=== PATIENT | male | born 1935 | race African-American/Black ===

== ENCOUNTER 2020-05-05 03:56 | Inpatient (IN) | payer MEDICARE ==
[~2020-05-05] VITALS: Ht 167.6 cm; Wt 66.7 kg
[2020-05-05] MEDS ORDERED: CALCIUM GLUC 4.65meq/50ml D5AE 50 ML IV ONE (04:30)
[2020-05-05] MEDS ORDERED: cloNIDine HCL 0.1 MG TAB PO ONE (04:30)
[2020-05-05 04:44] LABS: Basophils # (auto) 0 10 ^3/uL (0-0.2); Basophils % (auto) 0.2 % (0.0-2.0); Eosinophils # (auto) 0 10 ^3/uL (0-0.8); Eosinophils % (auto) 0.3 % (0.0-7.0); Hematocrit 44.3 % (41.0-53.0); Hemoglobin 15.2 g/dL (13.5-17.5); Lymphocytes # (auto) 2.4 10 ^3/uL (0.4-5.4); Lymphocytes % (auto) 23.4 % (10.0-50.0); Mean Corpuscular Hgb Conc. 34.4 g/dL (32.0-36.0); Mean Corpuscular Volume 90.1 fL (80.0-100.0); Monocytes # (auto) 1.3 10 ^3/uL (0-1.3); Monocytes % (auto) 12.5 % (0.0-12.0); Neutrophils # (auto) 6.4 10 ^3/uL (1.6-8.6); Neutrophils % (auto) 63.6 % (37.0-80.0); Nucleated Red Blood Cells % 0.2 %; Platelet Count (auto) 186 10^3/uL (140-450); Red Blood Cells 4.92 10^6/uL (4.5-5.90); Red Cell Distribution Width 14.3 % (11.8-14.3); White Blood Cell 10.1 10^3/uL (4.4-10.8)
[2020-05-05] MEDS ORDERED: ASPirin 81 mg TAB PO ONE (04:45)
[2020-05-05 05:00] LABS: Albumin 4.3 g/dL (3.4-5.0); Calcium 8.8 mg/dL (8.5-10.1); Magnesium 2.6 mg/dL (1.6-2.6); Potassium 3.3 mmol/L (3.5-5.1)
[2020-05-05] MEDS ORDERED: METOPROLOL TARTRATE 25 MG TAB PO ONE (05:00)
[2020-05-05 05:08] LABS: Bilirubin, Total 0.6 mg/dL (0.2-1.0); Total Protein 8.8 g/dL (6.4-8.2)
[2020-05-05] MEDS ORDERED: NITROGLYCERIN 2% OINT 1GM PKG TD ONE ×2 (05:30→05:45)
[2020-05-05 05:44] LABS: INR 1.02 (0.9-1.15); Partial Thromboplastin Time 27.1 sec (23.0-31.2)
[2020-05-05] MEDS ORDERED: POTASSIUM EFFERVESENT TAB 25 MEQ PO ONE (06:45)
[2020-05-05] MEDS ORDERED: HEPARIN SODIUM (PORCINE) 5000 UNITS/ML 1ML VIAL IV ONE (06:45)
[2020-05-05] MEDS ORDERED: IOHEXOL 350 MG/ML 100ML IJ ONE ×2 (07:57→08:19)
[2020-05-05] MEDS ORDERED: NITROGLYCERIN 0.4 MG SL TAB SL PRN ×2 (09:30→10:45)
[2020-05-05] MEDS ORDERED: MORPHINE SULF INJ 2 MG/ML SYRINGE 1ML IV PRN (09:30)
[2020-05-05] MEDS ORDERED: SODIUM CHLORIDE 0.9% 500 ML IV ONE (09:30)
[2020-05-05] MEDS ORDERED: ATENOLOL 25 MG TAB PO ONE (10:45)
[2020-05-05] MEDS ORDERED: POTASSIUM CHL 20MEQ/100ML 100 ML IV ONE (10:45)
[2020-05-05] MEDS ORDERED: dilTIAZem 120MG ER CAP PO ONE (10:45)
[2020-05-05] MEDS ORDERED: ACETAMINOPHEN 325 MG TAB PO PRN (10:45)
[2020-05-05] MEDS ORDERED: ONDANSETRON HCL 4 MG/2 ML VIAL IV PRN (10:45)
[2020-05-05] MEDS ORDERED: LORazepam 0.5 MG TAB PO PRN (10:45)
[2020-05-05] MEDS ORDERED: MORPHINE SULFATE 4 MG/ML SYR/VIAL IV PRN (10:45)
[2020-05-05] MEDS ORDERED: ALUM & MAG HYDROX-SIMETH LIQ(MAALOX) 30 ML PO ONE (10:45)
[2020-05-05] MEDS ORDERED: CYAN500T15 PO (11:12)
[2020-05-05] MEDS ORDERED: CHOL400C7 PO (11:12)
[2020-05-05] MEDS ORDERED: ROSU20TA14 PO (11:12)
[2020-05-05] MEDS ORDERED: DENO60SO SC (11:12)
[2020-05-05] MEDS ORDERED: LEVO75TA6 PO (11:12)
[2020-05-05] MEDS ORDERED: DILT-23 PO (11:13)
[2020-05-05] MEDS ORDERED: LOSARTAN POTASSIUM 25 MG TAB PO ONE (11:15)
--- NOTE | 2020-05-05 12:15 | NUR ---
Telemetry admit from ER RADHA REYES admitted to Telemetry unit after verbal report received from LORENZO Christopher, ER. Patient oriented to Anna Ny, primary RN, unit, room, bed, and unit policies regarding patient care and visiting hours. Patient now on continuous telemetry monitoring, tele box # 69 and telemetry reading on arrival to unit is sinus rhythm @ 86 bpm. IV to right antecubital, 20 gauge, patent and infusing 0.9% NS @ 75 ml/hr. Patient placed on bedside oxygen, weighed by bedscale and encouraged to call if they need something. All questions and concerns addressed, patient verbalized understanding. Note:
[2020-05-05] MEDS: SODIUM CHLORIDE 0.9% 1,000 ML IV SCH ×2 (12:34→22:16)
[2020-05-05 13:00] VITALS: BP 137/85
[2020-05-05 14:36] LABS: Free T4 (Free Thyroxine) 2.17 ng/dL (0.89-1.76)
[2020-05-05 17:00] VITALS: BP 132/82
--- NOTE | 2020-05-05 19:24 | NUR ---
Care endorsed to LORENZO Hwang, night nurse.
--- NOTE | 2020-05-05 19:35 | NUR ---
Opening Shift Note Assumed care of patient, awake and alert. No S/S of distress/SOB or pain noted. Instructed on POC and to call for assist PRN. Bed is in lowest locked position with bed rails up x2 and call light is within reach of the patient.
--- NOTE | 2020-05-05 19:38 | NUR ---
CALLED AND SPOKE WITH HOSPITALIST: Spoke with hospitalist Karly regarding patients complaints of indigestion who is requesting medication. Updated about patient, new orders received, to place orders.
[2020-05-05] MEDS ORDERED: FAMOTIDINE 20 MG TAB PO ONE (19:45)
[2020-05-05 22:00] VITALS: BP 150/98
[2020-05-05] MEDS ORDERED: ATENOLOL 25 MG TAB PO SCH (22:00)
[2020-05-05] MEDS: MAGNESIUM OXIDE 400 MG TAB PO SCH (22:14)
[2020-05-05] MEDS: ATORVASTATIN 20 MG TAB PO SCH (22:14)
[2020-05-05] MEDS: METOPROLOL SUCCINATE XL 50 MG TAB PO SCH (22:15)
[2020-05-06 05:00] VITALS: BP 147/86
--- NOTE | 2020-05-06 05:07 | NUR ---
Cloth Printer called: compliance technician called and notified this RN that patients heart rhythm reverted from a fib back to sinus rhythm at this time.
--- NOTE | 2020-05-06 08:00 | NUR ---
Opening Shift Note Assumed care of patient, awake, alert and oriented X4. No S/S of distress/SOB or pain. Tele# 69, sinus rhythm @ 86 bpm but patient has been converting between sinus rhythm and atrial fibrillation, Dr Sanabria aware. IV to left forearm, 22 gauge, patent and infusing 0.9% NS @ 75 ml/hr. Instructed on POC and to call for assist PRN, verbalized understanding. Bed locked, in lowest position, call light within reach, will continue to monitor for changes Q1hr and PRN.
[2020-05-06 09:00] VITALS: BP 150/93
[2020-05-06] MEDS ORDERED: dilTIAZem HCL 180MG ER CAP PO SCH (10:00)
[2020-05-06] MEDS: DOCUSATE SOD 100 MG CAP PO SCH (10:13)
[2020-05-06] MEDS: ASPirin 81 mg TAB PO SCH (10:13)
[2020-05-06] MEDS: LOSARTAN POTASSIUM 25 MG TAB PO SCH (10:14)
[2020-05-06] MEDS: MAGNESIUM OXIDE 400 MG TAB PO SCH ×2 (10:14→22:09)
[2020-05-06] MEDS: METOPROLOL SUCCINATE XL 50 MG TAB PO SCH ×2 (10:18→22:11)
--- NOTE | 2020-05-06 11:15 | NUR ---
ROUNDS Dr Comfort Yu at bedside for rounds, new orders received and followed through. Patient updated on plan of care, verbalized understanding.
[2020-05-06] MEDS: SODIUM CHLORIDE 0.9% 1,000 ML IV SCH (13:25)
[2020-05-06] MEDS ORDERED: RIVAROXABAN 15 MG TAB PO SCH (18:00)
--- NOTE | 2020-05-06 19:26 | NUR ---
Care endorsed to LORENZO Hwang, night nurse.
[2020-05-06 22:00] VITALS: BP 153/95
--- NOTE | 2020-05-06 22:08 | NUR ---
A-fib heart rate: Patients heart rate running a-fib at this time from 120-150's. Will administer scheduled medications for heart rate. Patient reports no pain, resting in bed. No distress noted. Will reassess heart rate.
[2020-05-06] MEDS: AMIODARONE HCL 200 MG TAB PO SCH (22:09)
[2020-05-06] MEDS: ATORVASTATIN 20 MG TAB PO SCH (22:10)
--- NOTE | 2020-05-06 23:11 | NUR ---
Heart rate converted back to sinus rhythm: Patients heart rate converted back to sinus rhythm at this time at rate of 100. Patient resting in bed with no s/s of distress SOB or pain noted.
[2020-05-07] MEDS: SODIUM CHLORIDE 0.9% 1,000 ML IV SCH (02:45)
[2020-05-07 05:22] VITALS: BP 160/95
[2020-05-07 06:29] VITALS: BP 141/95
--- NOTE | 2020-05-07 06:30 | NUR ---
Blood pressure reassessed: Blood pressure reassessed as 141/95, heart rate 98. Patient resting in bed with breaths even and unlabored. No s/s of distress sob noted at this time.
--- NOTE | 2020-05-07 07:42 | NUR ---
Opening Shift Note Assumed care of patient, awake and alert. No S/S of distress/SOB or pain. Instructed on POC and to call for assist PRN, will continue to monitor for changes Q1hr and PRN.
[2020-05-07] MEDS: AMIODARONE HCL 200 MG TAB PO SCH (08:54)
[2020-05-07] MEDS: DOCUSATE SOD 100 MG CAP PO SCH (08:54)
[2020-05-07] MEDS: ASPirin 81 mg TAB PO SCH (08:54)
[2020-05-07] MEDS: LOSARTAN POTASSIUM 25 MG TAB PO SCH (08:55)
[2020-05-07] MEDS: METOPROLOL SUCCINATE XL 50 MG TAB PO SCH (08:55)
[2020-05-07] MEDS: MAGNESIUM OXIDE 400 MG TAB PO SCH (08:55)
[2020-05-07 09:00] VITALS: BP 152/102
--- NOTE | 2020-05-07 11:09 | NUR ---
md knight rounded on patient per md knight we have to have clearance from lavinia to discharge pt home pt verbalized understanding
--- NOTE | 2020-05-07 12:53 | NUR ---
Nutrition Assessment Notes Please refer to link for full assessment notes. Est Energy needs: [id number] kcals (20-23 kcal/kgBW) Est Protein needs: 68-80 gms/day (1.0-1.2 gm/kgBW) Will continue to monitor and reassess prn. Addendum: 05/07/20 at [address] Amended: Links added.
[2020-05-07 13:00] VITALS: BP 148/99
[2020-05-07 15:46] LABS: Free T3 17.97 pg/mL (2.3-4.2)
--- NOTE | 2020-05-07 16:44 | NUR ---
md north at station updated on pt care per MD NOR[facility] PT IS CLEAR FOR DISCHARGE, called md knight per md nkight he will discharge in the morning
--- NOTE | 2020-05-07 16:45 | NUR ---
per md kate he told pt he can go home today told md lavinia knight will discharge in the morning
[2020-05-07 17:00] VITALS: BP 129/82
--- NOTE | 2020-05-07 17:10 | NUR ---
DIANA Pt stated md kate said he can go home and follow up with him in one week, advised pt he has no discharge order in and md knight will discharge in the morning. pt verbalized understanding of this but stated "i am cleared by the doctor in charge of my heart so i am going home" DIANA paper signed iv removed tele box sent back
== END 2020-05-07 17:10 | disposition left against medical advice (07) | DRG 643 ==
LOC: ER 03:59 → TELE 04:00 → TELE-WESTW 11:08
PROVIDERS: ADMIT Hospitalist; ATTEND Family Medicine
DX: E05.80 Other thyrotoxicosis without thyrotoxic crisis or storm (principal); I26.99 Other pulmonary embolism without acute cor pulmonale; I50.33 Acute on chronic diastolic (congestive) heart failure; I11.0 Hypertensive heart disease with heart failure; I48.91 Unspecified atrial fibrillation; Z53.29 Procedure and treatment not carried out because of patient's decision for other reasons; E78.5 Hyperlipidemia, unspecified; E87.6 Hypokalemia; E03.9 Hypothyroidism, unspecified; N52.9 Male erectile dysfunction, unspecified; M81.0 Age-related osteoporosis without current pathological fracture; M85.80 Other specified disorders of bone density and structure, unspecified site; E78.00 Pure hypercholesterolemia, unspecified
CPT/HCPCS: 36415; 71045; 71275; 80053; 83735; 83880; 84439; 84443; 84481; 84484; 85025; 85379; 85610; 85730; 93005; 93306; G0378; J0610; J3480